=== PATIENT | female | born 1935 | race Caucasian/White ===

== ENCOUNTER 2020-12-23 15:57 | Inpatient (IN) | payer MEDICARE ==
[~2020-12-23] VITALS: Ht 152.4 cm; Wt 54.9 kg
[2020-12-23 17:00] LABS: HEMOGLOBIN 14.3 gm/dl (12.3-15.3); RED BLOOD COUNT 5.07 M/UL (4.00-5.10); WHITE BLOOD COUNT 7.5 K/UL (4.5-11.0)
[2020-12-24 01:11] LABS: HEMOGLOBIN 14.1 gm/dl (12.3-15.3); RED BLOOD COUNT 5.02 M/UL (4.00-5.10); WHITE BLOOD COUNT 7.2 K/UL (4.5-11.0)
[2020-12-24 01:39] LABS: BUN/CREATININE RATIO 13 (0-10)
--- NOTE | 2020-12-24 02:18 | NUR ---
PT WAS ASSESSED AND EVALUATED AT 1999 ON 12/23/20. DATE AND TIME NOT CHANGED WHEN DOCUMENTING INITAL PART 2 ASSESSMENT.
--- NOTE | 2020-12-24 03:20 | NUR ---
AT 3RD ROUND VITAL SIGN CHECKS, PT REFUSED TO HAVE TEMPERATURE TAKEN. PT BECAME VERBALLY AND PHYSICALLY COMBATIVE WHEN APPROACHED WITH THERMOMETER. WCTM
--- NOTE | 2020-12-24 17:09 | NUR ---
[facility] [employer] EQU[employer]MENT AT 1649 HR 40 BP 98/33 PATIENT SYMPTOMATIC UNABLE TO RESPOND ATROPINE 1 MG GIVEN AT [address] VAZQUEZ O2 AT 2 L NC ,PULSE OX 100% SR TELEMETRY EKG 1458 SINUS
[2020-12-24 19:27] LABS: BUN/CREATININE RATIO 13 (0-10)
--- NOTE | 2020-12-25 01:17 | NUR ---
UPON ASSESSMENT, PT DISCOVERED TO HAVE 4+ HAND BULLDOZER ENGINEER TO RIGHT SIDE, 3+ HAND BULLDOZER ENGINEER TO LEFT SIDE. PT ALSO HAS DIFFICULTY PROVIDING RESISTANCE WHEN LIFTING LEFT LEG. RIGHT LEG HAD MORE RESISTANCE AND STRENGTH. WCTM
[2020-12-26 09:21] LABS: HEMOGLOBIN 13.7 gm/dl (12.3-15.3); RED BLOOD COUNT 5.12 M/UL (4.00-5.10); WHITE BLOOD COUNT 6.9 K/UL (4.5-11.0)
[2020-12-26 11:22] LABS: BUN/CREATININE RATIO 19 (0-10)
--- NOTE | 2020-12-27 03:01 | NUR ---
AT APPROX 0245 ON 12/27/20, PT WAS DISCOVERED TO HAVE O2 SAT IN 50'S PERCENT. PT WAS PLACED ON NON-REBREATHER AT 100%. O2 SAT DID NOT RAISE ABOVE 75%. YARDING ENGINEER WAS CALLED. EMERGENCY TEAM ARRIVED. MD ARRIVED ON SCENE. PT STILL SATTING IN 70'S TO 80'S. STAT ABG, CBC, BMP, CARDIAC SET NOW AND IN 3 HOURS, CHEST XRAY, AND BIPAP ORDERED. VERBAL ORDER VIA DR. CABRAL TO MOVE PT TO PCU. WIRE SPRING RELAY ADJUSTER ON SCENE AND AWARE OF PCU ORDER.
[2020-12-27 03:23] LABS: HEMOGLOBIN 15.7 gm/dl (12.3-15.3); RED BLOOD COUNT 5.67 M/UL (4.00-5.10); WHITE BLOOD COUNT 5.4 K/UL (4.5-11.0)
--- NOTE | 2020-12-27 03:31 | NUR ---
EMERGENCY CONTACT LANI HIMA NOTIFIED OF PT CONDITION AND CHANGE IN STATUS. EMERGENCY CONTACT STATED THAT SHE WANTED PT KEPT COMFROTABLE POSSIBLE. LANI INFORMED THAT PT WOULD BE MOVED TO 6102 PER HOSPITAL POLICY FOR NEW BIPAP ADMINISTRATION. LANI INSTRUCTED THAT ANY FAMILY THAT WISHES TO SEE PT WOULD BE ADVISED TO COME SEE HERE SOON POSSIBLE. LANI MADE AWARE THAT ALL EFFORTS POSSIBLE MADE FOR PT HEALTH AND COMFORT RELATING TO PT CODE STATUS DNR. LANI ASSURED SHE UNDERSTOOD.
[2020-12-27 03:56] LABS: BUN/CREATININE RATIO 22 (0-10)
--- NOTE | 2020-12-27 05:34 | NUR ---
AT BEGINNING OF SHIFT, GUM SPRAYER WAS CALLED TO OBTAIN PATIENT SITTER D/T PT UNSTEADYNESS AND ATTMEPTING TO CLIMB OOB. GUM SPRAYER STATED THERE WAS NO STAFF AVAILABLE FOR SITTER UNLESS IT WAS DEEMED AN EMERGENCY.
== END 2020-12-28 11:59 | disposition expired | DRG 280 ==
LOC: ER1 15:57 → CDU 18:46 → M/S 18:46 → PROG CARE 18:46 → M/S 20:36 → PROG CARE 12-27 04:18
PROVIDERS: Family Medicine; Internal Medicine; ADMIT Internal Medicine
PROC: 5A09357 Assistance with Respiratory Ventilation, Less than 24 Consecutive Hours, Continuous Positive Airway Pressure (ICD-10-PCS; principal; 2020-12-27)
DX: I21.4 Non-ST elevation (NSTEMI) myocardial infarction (principal); G93.5 Compression of brain; G93.41 Metabolic encephalopathy; K72.00 Acute and subacute hepatic failure without coma; Z20.822 Contact with and (suspected) exposure to COVID-19; A41.9 Sepsis, unspecified organism; J69.0 Pneumonitis due to inhalation of food and vomit; J18.9 Pneumonia, unspecified organism; I61.8 Other nontraumatic intracerebral hemorrhage; R65.20 Severe sepsis without septic shock; E87.3 Alkalosis; G91.2 (Idiopathic) normal pressure hydrocephalus; Z51.5 Encounter for palliative care; Z66 Do not resuscitate; H91.90 Unspecified hearing loss, unspecified ear; F03.90 Unspecified dementia, unspecified severity, without behavioral disturbance, psychotic disturbance, mood disturbance, and anxiety; E87.6 Hypokalemia; R00.1 Bradycardia, unspecified; E78.5 Hyperlipidemia, unspecified; I95.9 Hypotension, unspecified; I10 Essential (primary) hypertension; G89.29 Other chronic pain; K72.90 Hepatic failure, unspecified without coma; Z79.82 Long term (current) use of aspirin; Z90.710 Acquired absence of both cervix and uterus; Z83.3 Family history of diabetes mellitus; Z80.9 Family history of malignant neoplasm, unspecified
CPT/HCPCS: 0240U; 36415; 36600; 70450; 70551; 71045; 80048; 80053; 80061; 82140; 82550; 82553; 82803; 82962; 83036; 83605; 83735; 83874; 84132; 84439; 84443; 84484; 85025; 85027; 85610; 85730; 92526; 92610; 93005; 94660; 97110-GP-CQ; 97162; 97167; 97530-GP-CQ; 99285; J1644; J2270; J2543; J3480; J3486